=== PATIENT | female | born 1990 | race Caucasian/White ===

== ENCOUNTER 2018-01-16 08:58 | Day surgery (SDC) | payer OTHER ==
[~2018-01-16] VITALS: Ht 160 cm; Wt 86.2 kg
[~2018-01-16 08:58] MED LIST: 24HOUR ALLERGY10 MG PO; AMOXICILLIN500 MG PO; BENTYL10 MG PO; Chromagen, Feogen, M PO; MIRENA52 MG IY; Motrin PO; PREDNISONE20 MG PO; PRENATAL; TRAMADOL HCL50 MG PO; TYLENOL; VENTOLIN HFA18 GM IH; ZOFRAN ODT4 MG PO; ZYRTEC10 M2 PO
[2018-01-16 09:22] VITALS: BP 123/71
[2018-01-16] MEDS ORDERED: NORCO 5/3251 TABLET PO (11:49)
[2018-01-16] MEDS ORDERED: MOTRIN800 MG PO (11:49)
[2018-01-16 12:50] VITALS: BP 112/70
[2018-01-16 13:56] VITALS: BP 114/66
== END 2018-01-16 13:50 | disposition home or self-care (01) ==
LOC: SDC 08:58
DX: Z30.2 Encounter for sterilization (principal); N83.202 Unspecified ovarian cyst, left side; Z30.432 Encounter for removal of intrauterine contraceptive device; E66.9 Obesity, unspecified; Z68.34 Body mass index [BMI] 34.0-34.9, adult; Z88.8 Allergy status to other drugs, medicaments and biological substances; Z82.49 Family history of ischemic heart disease and other diseases of the circulatory system; Z83.3 Family history of diabetes mellitus; Z80.42 Family history of malignant neoplasm of prostate; Z80.0 Family history of malignant neoplasm of digestive organs; Z82.5 Family history of asthma and other chronic lower respiratory diseases; Z83.49 Family history of other endocrine, nutritional and metabolic diseases
CPT/HCPCS: J0131; J0330; J1100; J1170; J1885; J2250; J2405; J3010; S0020